=== PATIENT | female | born 1940 | race Caucasian/White ===

== ENCOUNTER 2016-10-11 12:11 | Observation (INO) | payer OTHER ==
--- NOTE | ~2016-10-11 | DS ---
Discharge Summary [facility] [address] [place]. [address] NAME: SIMONE MANUEL : 36 STATUS : DIS [facility]re PAT#: [id number] AGE: 76 ADM/REG DATE : 10/11/16 MR#: [id number] REPORT SERV DATE: 10/14/16 DICTATED BY: ARVIND RUFFIN DATE: 10/13/16 REPORT STATUS : Draft TRANSCRIBED BY: MODL DATE: 10/13/16 ADMISSION DATE: 10/11/2016 DISCHARGE DATE: 10/13/2016 DISCHARGE DIAGNOSES: 1. Vertigo, now resolved. No evidence of urinary tract infection. 2. Uncontrolled type 2 diabetes mellitus, improved. 3. Hypertension. 4. Dehydration, now resolved. 5. Hypotension, now resolved. 6. Right bundle branch block, chronic. 7. Depression. Medication continued per family. CONSULTANTS DURING THIS HOSPITALIZATION: None. INVASIVE PROCEDURES DONE DURING THIS HOSPITALIZATION: None. BRIEF HISTORY OF PRESENT ILLNESS: The patient is a 76-year-old white female who was triaged in the emergency room on 10/11/2016 at 1211 hours. The patient came in with complaints of dizziness, changing in blood pressure, and blood sugar, so she was admitted. For detailed history and physical exam, please see note dictated by Dr. Andrea Rivera on 10/11/2016. HOSPITAL COURSE: After being admitted to the hospital, this patient initially was thought to have a urinary tract infection, so she was started on IV Rocephin and IV fluids were given. She had a slight elevation in troponin and these were monitored, but it never went above over 0.1, the highest it got was 0.07. Her lab work remained stable. Her creatinine was normal. Her blood pressure improved with hydration as well. Urine culture came back negative, so Rocephin has been discontinued. She was encouraged to continue taking her regular medications. Otherwise, she remained stable and is being discharged in stable condition. DISCHARGE DISPOSITION: Home. DISCHARGE ACTIVITY: As tolerated. DISCHARGE DIET: Low sodium, 1800-calorie [employer] diet. DISCHARGE MEDICATIONS: Humalog pump fill, Synthroid 150 mcg once daily, Risperdal 0.5 mg once every morning, Lotensin and HCT 20 mg/12.5 mg once every morning, Singulair 10 mg once daily, herbal supplements as needed, vitamin D 2000 units once every morning, hydroxyzine 25 mg daily p.r.n., and fish oil. DISCHARGE FOLLOWUP: With Dr. Heath Leiva in one week. More than 30 minutes spent planning this patient's discharge, reconciling medications, writing prescriptions, discussing hospital care, and followup with the patient and the Discharge Summary [facility] [address] [place]. [address] NAME: SIMONE MANUEL : 38 STATUS : DIS Tigre PAT#: [id number] AGE: 76 ADM/REG DATE : 10/11/16 MR#: [id number] REPORT SERV DATE: 10/14/16 DICTATED BY: ARVIND RUFFIN DATE: 10/13/16 REPORT STATUS : Draft TRANSCRIBED BY: JOHN DATE: 10/13/16 daughter at the bedside. GIULIA/JOHN Arvind Ruffin M.D. / [id number] CC: Fazal Ron D.O.
--- NOTE | ~2016-10-11 | HP ---
History And Physical [facility] [address] [facility] [place]. [address] NAME: SIMONE MANUEL : 38 STATUS : ADM Tigre PAT#: [id number] AGE: 76 ADM/REG DATE : 10/11/16 MR#: [id number] REPORT SERV DATE: 10/11/16 DICTATED BY: RITA RIVERA DATE: 10/11/16 REPORT STATUS : Draft TRANSCRIBED BY: MODKeenan DATE: 10/11/16 DATE OF ADMISSION: 10/11/2016 CHIEF COMPLAINT: Dizziness episodes with changes in blood pressure and blood sugars. HISTORY OF PRESENT ILLNESS: The patient is a 76-year-old female with past medical history of hypertension; dementia; diabetes type 2, on insulin pump; thyroid disease; history of syncope secondary medications, who presents after having generalize-type weakness, unable to ambulate. Daughter reports that she is unable to get her perform ADLs like she had at her baseline. Symptoms have been constant, moderate without any pain or radiating symptoms. No nausea, vomiting, fever, or chills, but has had dizziness episodes and appears to have urinary tract-type symptoms. There are no worsening or relieving symptoms, but the patient is unable to ambulate, as she gets dizziness from there. The patient has been having intermittent administration of medications from daughter including blood pressure medications, which she has a handwritten log of holding and giving medications. Additionally, the patient has not been given her psych medications at night because caregiver is also battling sleep apnea and is about to get her CPAP next week. This has prevented her from giving her, her medications. Additionally, thyroid medication has also been influx, as the patient has been given daughter's thyroid medication, as she believed this was better than the one she has been normally prescribed. REVIEW OF SYSTEMS: For additional review of systems. GENERAL: Noted for no fevers or chills, but dizziness. EYES: No visual changes or pain reported. ENT: No sore throat or congestion. NEURO: Does have mild dizziness episodes, but no headache. SKIN: Did have a rash one week ago, but resolved. No bruising. RESPIRATORY: No shortness of breath or cough. CV: No chest pain or palpitations. GI: No nausea or diarrhea. : No dysuria. May have increased frequency, but no hematuria reported. MUSCULOSKELETAL: No myalgias or arthralgias at baseline. ENDO: No fatigue or polyuria. HEME: No bleeding or bruising. NEUROLOGIC: No rhinorrhea. PSYCH: No anxiety. Mild confusion, but improved from initial presentation. PAST MEDICAL HISTORY: UTIs; encephalopathy; dementia; diabetes, insulin dependent, insulin pump; hypertension; hypothyroidism; and obesity. SURGICAL HISTORY: Hysterectomy, back surgery, and left ankle. SOCIAL HISTORY: No tobacco, alcohol or illicits. Accompanied with daughter at bedside. FAMILY HISTORY: Stroke and hypertension. History And Physical [address] [place]. [address] NAME: SIMONE MANUEL : 38 STATUS : ADM [facility]re PAT#: [id number] AGE: 76 ADM/REG DATE : 10/11/16 MR#: [id number] REPORT SERV DATE: 10/11/16 DICTATED BY: RITA RIVERA DATE: 10/11/16 REPORT STATUS : Draft TRANSCRIBED BY: JOHN DATE: 10/11/16 ALLERGIES: B COMPLEX, MULTIVITAMIN, METFORMIN, ORANGE JUICE, AND SEROQUEL. HOME MEDICATIONS: Benazepril and hydrochlorothiazide, D3, Atarax, Humalog for insulin pump, Synthroid, Singulair, risperidone, and herbal supplement. PHYSICAL EXAMINATION: VITAL SIGNS: The patient's blood pressure 104/53, temperature 97.5, pulse 63, respirations 16, O2 saturations 100%, temperature 97.5. GENERAL: Elderly, chronically ill appearing, but in no acute distress. EYES: No scleral icterus. ENT: Dry mucous membranes. Tongue midline. HEAD: Normocephalic, atraumatic. RESPIRATORY: Clear to auscultation. No wheezes or rales. CV: Regular rate. No rubs. No JVD. GI: Soft, nontender, nondistended. : Deferred. MUSCULOSKELETAL: Moves extremities, but approximately 4 out of 6 x4. SKIN: Mild mottling and mild skin tenting. LYMPH: No cervical or supraclavicular lymphadenopathy. HEME: No bleeding or bruising. NEURO: Alert to person. Moves extremities, but does have clear dementia component. The daughter who is at bedside reports that she is at her baseline except for her strength, which she is not able to perform her regular functions. PSYCH: Appropriate mood and calm. LABORATORY DATA AND IMAGING: Chest, portable, lungs clear, cardiomegaly. Glucose 161. Urinalysis, small leuk esterase. CMP; sodium 142, potassium 4.3, BUN and creatinine 24 and 0.84, glucose 148. LFTs within normal limits. Troponin negative. CBC, WBC count 10.8, H and H within normal limits, platelets 240. INR 1.1. EKG, right bundle-branch block seen on prior EKGs in 2016, rate of 57, QTc 430. ASSESSMENT AND PLAN: 1. Urinary tract infection. 2. Syncope, dizziness. 3. Weakness. 4. Dehydration. 5. Hypertension. 6. Right bundle-branch block. 7. Diabetes, insulin dependent, on insulin pump. 8. Psych disease. PLAN: 1. For UTI, IV antibiotics and IV fluids. Prior cultures noted. Rocephin 2 g. Treat based off cultures. 2. Syncope, dizziness, likely secondary to UTI. Has had prior extensive workup that was attributed to acute encephalopathy secondary to UTI. Additionally, medication History And Physical [address] [address] NAME: SIMONE MANUEL : 38 STATUS : ADM [facility] PAT#: [id number] AGE: 76 ADM/REG DATE : 10/11/16 MR#: [id number] REPORT SERV DATE: 10/11/16 DICTATED BY: RITA RIVERA DATE: 10/11/16 REPORT STATUS : Draft TRANSCRIBED BY: JOHN DATE: 10/11/16 adjustments with thyroid medications, blood pressure medications, psych medications, which appear to have an inconsistent pattern of administration. Will need to be monitored. 3. Weakness. Treat underlying UTI and PT. 4. Dehydration. IV fluids. 5. Hypotension, hypertension variable. Appears normotensive at this time. IV fluids being administered and IV antibiotics. 6. Right bundle-branch block, chronic, seen in 2016. No acute chest pain reported. Troponins negative. 7. Diabetes type 2. Sliding scale insulin, insulin pump. Family requesting continuation of insulin pump, as the patient has had difficulty with control without insulin pump. We will monitor and adjust. 8. Psych disease, unclear medications, as the patient's family reports she has not been given any psych medications in approximately a month due to caregiver having sleep apnea, which is to be treated next week with CPAP, but reports that has not had any psych medications given in the last possibly month. 9. Additional hypertension. The patient sporadically given medications based off continued blood pressure. Appears to be given medications when blood pressure is over 140, but holding medications to less than 120, as the patient becomes symptomatic when treated for less than 120. We will need to monitor and titrate medications. DISPOSITION: Pending improvement in physical ability. May need further physical therapy or home health if required. DDN/MODL Rita Rviera MD / [id number] CC: MD Hetah Garza D.O.
[~2016-10-11 12:11] MED LIST: ASAB PO; AT25 PO; AUG500 PO; B121000P IM; HUMAPUMP SC; LEVEMFLXPN SC; LOTENSIN HCT1 TA2 PO; NOVOLOG SC; OTC FISH OIL PO; RISP1 PO; RISP2 PO; SEROQUEL25 PO; SYN125 PO; TYLENOL ARTH650 MG PO; VITAMIN B-12 OTC PO; VITAMIN D OTC PO; [UNRECOGNIZED DRUG - OTHER] TOP
[2016-10-11 13:21] LABS: BASOPHILS 0 %; EOSINOPHILS 0.6 %; EOSINOPHILS ABSOLUTE 0.06 10/3/uL (0.0-0.53); ER CBC TAT 0 Hrs 05 Mins; HEMATOCRIT 40.4 % (36.0-48.0); HEMOGLOBIN 13.6 g/dL (12.0-16.0); IMMATURE GRANULOCYTES 0.2 %; IMMATURE GRANULOCYTES ABSOLUTE 0.02 10/3/uL (0.0-0.11); LYMPHOCYTES ABSOLUTE 0.87 10/3/uL (0.67-4.30); MANUAL DIFF NO %; MEAN CORPUS HGB CONC 33.7 g/dL (32.0-36.0); MEAN CORPUSCULAR HEMOGLOB 29.8 pg (26.0-34.0); MEAN CORPUSCULAR VOLUME 88.6 fL (80-100); MONOCYTES 10.9 %; MONOCYTES ABSOLUTE 1.18 10/3/uL (0.21-1.20); NEUTROPHILS 80.3 %; NEUTROPHILS ABSOLUTE 8.71 10/3/uL (2.02-8.40); PLATELET COUNT 240 10/3/uL (150-400); RBC DISTRIBUTION WIDTH 13.2 % (12.0-16.0); RED CELL COUNT 4.56 10/6/uL (4.0-5.6); WHITE BLOOD CELLS 10.8 10/3/uL (4.5-10.5)
[2016-10-11 13:29] LABS: INTERNATIONAL NORMAL RATI 1.1 UNITS (-); PARTIAL THROMBO TIME 28.4 SEC (22.5-37.2); PROTIME (NOT ORD) 13.8 SEC (12.0-14.5)
[2016-10-11 13:41] LABS: ALKALINE PHOSPHATASE 110 U/L (45-117); CALCIUM, SERUM 8.7 MG/DL (8.5-10.4); CHLORIDE, SERUM 106 MMOL/L (96-112); CO2 (CARBON DIOXIDE) 29 MMOL/L (24-34); CREATININE 0.84 MG/DL (0.55-1.02); GFR AFRICAN AMERICAN 77 ML/MIN (>=60); GFR NON AFRICAN AMERICAN 67 ML/MIN (>=60); SGPT(ALT) 30 U/L (5-65); SODIUM, SERUM 142 MMOL/L (135-148); TOTAL BILIRUBIN 0.7 MG/DL (0-1.2); TOTAL PROTEIN 6.8 G/DL (6.0-8.5); TROPONIN I <0.02 NG/ML (<0.05)
[2016-10-11 13:45] LABS: A/G RATIO 0.8 (0.7-1.9); BUN (BLOOD UREA NITROGEN) 24 MG/DL (6-23); GLOBULIN 3.8 G/DL (2.5-4.1); GLUCOSE, SERUM 148 MG/DL (60-99)
[2016-10-11 13:47] LABS: POTASSIUM, SERUM 4.3 MMOL/L (3.5-5.3); SGOT(AST) 36 U/L (5-40)
[2016-10-11 14:11] LABS: ASCORBIC ACID (UR NOT ORDER) NEG (NEG); BILIRUBIN, URINE NEGATIVE (NEG); KETONE, URINE NEGATIVE (NEG); LEUKOCYTE ESTERASE(NOT OR SMALL (NEG); NITRITE (URINE) NEG (NEG); WBC (NOT ORDERED) (RFLEX) 18 (0-5)
[2016-10-11 14:12] LABS: ER URINALYSIS TAT 0 Hrs 38 Mins
[2016-10-11] MEDS ORDERED: LOTENSIN HCT1 TA2 PO (16:49)
[2016-10-11] MEDS ORDERED: SYN.15 PO (16:50)
[2016-10-11] MEDS ORDERED: RISP0.5 PO (16:50)
[2016-10-11] MEDS ORDERED: ARMOUR THYRO90 MG PO (16:51)
[2016-10-11] MEDS ORDERED: SINGULAIR1 PO (16:52)
[2016-10-11] MEDS ORDERED: HERBAL SUPPLEMENT PO (16:55)
[2016-10-11] MEDS ORDERED: VITAMIN D31000 UNIT PO (17:06)
[2016-10-11] MEDS ORDERED: AT25 PO (17:09)
[2016-10-11] MEDS ORDERED: HUMAPUMP SC (17:10)
[2016-10-11] MEDS ORDERED: FISH OIL PO (17:22)
[2016-10-12 05:02] LABS: BASOPHILS 0.1 %; BASOPHILS ABSOLUTE 0.01 10/3/uL (0.0-0.16); EOSINOPHILS 0.7 %; EOSINOPHILS ABSOLUTE 0.05 10/3/uL (0.0-0.53); HEMATOCRIT 33.7 % (36.0-48.0); HEMOGLOBIN 11.8 g/dL (12.0-16.0); IMMATURE GRANULOCYTES 0.1 %; IMMATURE GRANULOCYTES ABSOLUTE 0.01 10/3/uL (0.0-0.11); LYMPHOCYTES 22.5 %; LYMPHOCYTES ABSOLUTE 1.57 10/3/uL (0.67-4.30); MANUAL DIFF NO %; MEAN CORPUSCULAR HEMOGLOB 30.9 pg (26.0-34.0); MEAN CORPUSCULAR VOLUME 88.2 fL (80-100); MEAN PLATELET VOLUME 11.1 fL (9.2-13.0); MONOCYTES 13.8 %; MONOCYTES ABSOLUTE 0.96 10/3/uL (0.21-1.20); NEUTROPHILS 62.8 %; NEUTROPHILS ABSOLUTE 4.38 10/3/uL (2.02-8.40); PLATELET COUNT 217 10/3/uL (150-400); RBC DISTRIBUTION WIDTH 13.4 % (12.0-16.0); RED CELL COUNT 3.82 10/6/uL (4.0-5.6)
[2016-10-12 05:33] LABS: BUN (BLOOD UREA NITROGEN) 21 MG/DL (6-23); CALCIUM, SERUM 8.2 MG/DL (8.5-10.4); CHLORIDE, SERUM 108 MMOL/L (96-112); CO2 (CARBON DIOXIDE) 26 MMOL/L (24-34); CREATININE 0.71 MG/DL (0.55-1.02); GFR AFRICAN AMERICAN 95 ML/MIN (>=60); GFR NON AFRICAN AMERICAN 82 ML/MIN (>=60); SODIUM, SERUM 143 MMOL/L (135-148)
[2016-10-12 05:37] LABS: GLUCOSE, SERUM 210 MG/DL (60-99); POTASSIUM, SERUM 3.2 MMOL/L (3.5-5.3); TROPONIN I 0.07 NG/ML (<0.05)
[2016-10-12 06:29] LABS: ASCORBIC ACID (UR NOT ORDER) NEG (NEG); BILIRUBIN, URINE NEGATIVE (NEG); KETONE, URINE 20 MG/DL (NEG); LEUKOCYTE ESTERASE(NOT OR MOD (NEG); WBC (NOT ORDERED) (RFLEX) 27 (0-5)
[2016-10-12 06:44] LABS: PROCALCITONIN 0.07 ng/mL (<0.5)
[2016-10-12 11:41] LABS: POTASSIUM, SERUM 3.9 MMOL/L (3.5-5.3)
[2016-10-12 14:33] LABS: TROPONIN I 0.06 NG/ML (<0.05)
[2016-10-13 05:24] LABS: BASOPHILS 0 %; EOSINOPHILS 2.6 %; EOSINOPHILS ABSOLUTE 0.13 10/3/uL (0.0-0.53); HEMATOCRIT 33.8 % (36.0-48.0); HEMOGLOBIN 11.8 g/dL (12.0-16.0); IMMATURE GRANULOCYTES 0.2 %; IMMATURE GRANULOCYTES ABSOLUTE 0.01 10/3/uL (0.0-0.11); LYMPHOCYTES ABSOLUTE 1.49 10/3/uL (0.67-4.30); MEAN CORPUS HGB CONC 34.9 g/dL (32.0-36.0); MEAN CORPUSCULAR HEMOGLOB 30.6 pg (26.0-34.0); MEAN CORPUSCULAR VOLUME 87.8 fL (80-100); MEAN PLATELET VOLUME 10.5 fL (9.2-13.0); MONOCYTES 13.7 %; MONOCYTES ABSOLUTE 0.68 10/3/uL (0.21-1.20); NEUTROPHILS 53.5 %; NEUTROPHILS ABSOLUTE 2.65 10/3/uL (2.02-8.40); PLATELET COUNT 206 10/3/uL (150-400); RBC DISTRIBUTION WIDTH 13.2 % (12.0-16.0); RED CELL COUNT 3.85 10/6/uL (4.0-5.6)
[2016-10-13 05:26] LABS: MANUAL DIFF NO %
[2016-10-13 05:47] LABS: ALBUMIN 2.5 G/DL (3.5-5.0); CALCIUM, SERUM 8.5 MG/DL (8.5-10.4); CHLORIDE, SERUM 108 MMOL/L (96-112); CO2 (CARBON DIOXIDE) 25 MMOL/L (24-34); CREATININE 0.58 MG/DL (0.55-1.02); GFR AFRICAN AMERICAN 102 ML/MIN (>=60); GFR NON AFRICAN AMERICAN 88 ML/MIN (>=60); GLUCOSE, SERUM 240 MG/DL (60-99); PHOSPHORUS, SERUM 2.9 MG/DL (2.5-4.5); POTASSIUM, SERUM 4.1 MMOL/L (3.5-5.3); SODIUM, SERUM 141 MMOL/L (135-148)
[2016-10-13 05:48] LABS: BUN (BLOOD UREA NITROGEN) 14 MG/DL (6-23)
[2016-10-13] MEDS ORDERED: SYN125 PO (13:41)
[2017-05-03] MEDS ORDERED: ZIAC5 PO (22:36)
[2017-05-03] MEDS ORDERED: PLAVIX PO (22:37)
[2017-05-03] MEDS ORDERED: LIPITOR80 MG PO (22:38)
[2017-05-03] MEDS ORDERED: HUMAPUMP SC (22:39)
[2017-05-05] MEDS ORDERED: B VITAMIN PO (17:53)
[2017-05-05] MEDS ORDERED: VITAMIN D PO (17:54)
[2017-05-05] MEDS ORDERED: [UNRECOGNIZED DRUG - OTHER] PO (17:54)
[2017-05-05] MEDS ORDERED: ALPHA LIPOIC PO (17:54)
[2017-05-05] MEDS ORDERED: HALF81 PO (17:55)
[2017-05-05] MEDS ORDERED: BACOPA PO (17:55)
[2017-05-05] MEDS ORDERED: LIPITOR80 MG PO (17:56)
[2017-05-05] MEDS ORDERED: SYN125 PO (17:57)
[2017-05-05] MEDS ORDERED: RISP0.5 PO (17:57)
[2017-05-05] MEDS ORDERED: HUMAPUMP SC (17:57)
[2017-05-05] MEDS ORDERED: ZIAC5 PO (17:57)
[2017-05-05] MEDS ORDERED: PLAVIX PO (17:58)
== END 2016-10-13 16:36 | disposition home or self-care (01) ==
LOC: ER 12:11 → CDU1 17:36 → CDU2 18:36
PROVIDERS: Emergency Medicine; Internal Medicine; Student in an Organized Health Care Education/Training Program
DX: R42 Dizziness and giddiness (principal); I10 Essential (primary) hypertension; E86.0 Dehydration; I95.9 Hypotension, unspecified; I45.10 Unspecified right bundle-branch block; F32.9 Major depressive disorder, single episode, unspecified; E11.8 Type 2 diabetes mellitus with unspecified complications; E66.9 Obesity, unspecified; E78.00 Pure hypercholesterolemia, unspecified; E03.9 Hypothyroidism, unspecified; Z79.52 Long term (current) use of systemic steroids; Z79.899 Other long term (current) drug therapy; Z90.710 Acquired absence of both cervix and uterus; Z98.890 Other specified postprocedural states; Z82.3 Family history of stroke; Z82.49 Family history of ischemic heart disease and other diseases of the circulatory system; Z88.8 Allergy status to other drugs, medicaments and biological substances
CPT/HCPCS: 71010; 80048; 80053; 80069; 81001; 82962; 83735; 84132; 84145; 84443; 84484; 85025; 85610; 85730; 87040; 87086; 93005; 96372; 96374; 96376; 97161-GP; 99285; A9270-GY; G0378; G8978-CJ-GP; G8979-CH-GP

== ENCOUNTER 2016-12-13 22:28 | Inpatient (IN) | payer OTHER ==
--- NOTE | ~2016-12-13 | CN ---
Consultation Report [facility] [address] [place]. [address] NAME: SIMONE MANUEL : 38 STATUS : ADM Tigre PAT#: [id number] AGE: 76 ADM/REG DATE : 12/13/16 MR#: [id number] REPORT SERV DATE: 12/16/16 DICTATED BY: DALIA SALTER DATE: 12/16/16 REPORT STATUS : Draft TRANSCRIBED BY: JOHN DATE: 12/16/16 CARDIOLOGY CONSULT DATE OF CONSULTATION: REFERRING PHYSICIAN: Rabia Loredo, nurse practitioner, neurology Service. REFERRING REASON: Acute CVA, possible embolic, and need for a loop recorder. HISTORY OF PRESENT ILLNESS: This is a pleasant 76-year-old white, obese female, with long history of hypertension and some vertigo type sensation, but no previous other cardiac issues. She is been followed by Dr. Soares at [facility]. She has some mild underlying dementia and possible prior history of CVA. She presented with an unsteady gait and syncopal episodes. There were some borderline orthostatic changes, but remained in normal sinus rhythm. Echocardiogram was found to be normal. She has been admitted to Hospitalist Service. The initial CT of the brain was negative for acute changes. 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 Dr. Nascimento neurologist requesting a loop recorder. She remained in normal sinus rhythm. According to her daughter, the patient has been walking with a walker on and off for while, while having unsteady gait. She denied any recent palpitations, chest pain, or significant shortness of breath. Her cardiac enzymes are negative. She was just started on aspirin, Plavix, and statin. An echocardiogram was normal with an EF of 65%. The rest of review of systems is negative. PAST MEDICAL HISTORY: 1. Dementia. 2. Obesity. 3. Hypertension. 4. Hyperlipidemia. 5. History of vertigo type sensation in the past and history of negative nuclear cardiac stress test for ischemia in 2013. ALLERGIES: METFORMIN AND SEROQUEL. SOCIAL HISTORY: The patient lives with her daughter. She is a . She does not drink alcohol, use street drugs, or smoking. She walks with a walker. FAMILY HISTORY: Negative for sudden cardiac or premature coronary artery disease in the family. CURRENT MEDICATION: Benazepril 20 mg once a day, Aricept 5 mg once a day, Lovenox subcutaneously, Synthroid 150 mcg once a day, Antivert 25 mg every six hours, Risperdal 0.5 mg once a day, Tylenol p.r.n., she is getting also Rocephin for UTI times, and she was just started on statin therapy. Consultation Report [facility] [address] [place]. [address] NAME: SIMONE MANUEL : 38 STATUS : ADM [facility] PAT#: [id number] AGE: 76 ADM/REG DATE : 12/13/16 MR#: [id number] REPORT SERV DATE: 12/16/16 DICTATED BY: DALIA SALTER DATE: 12/16/16 REPORT STATUS : Draft TRANSCRIBED BY: JOHN DATE: 12/16/16 PHYSICAL EXAMINATION: GENERAL: In no acute distress. VITAL SIGNS: Blood pressure 196/81, heart rate 61 and regular. HEENT: Pupils reactive to light and accommodation. Moist mucosa membrane. NECK: No JVD. Normal carotid upstroke. No carotid bruits. LUNGS: Decreased breath sounds, but no crackles. COR: Normal S1, S2. No S3 or S4. No significant rub or murmurs. ABDOMEN: Obese, distended, and nontender. EXTREMITIES: Lower extremities, decreased pedal pulses bilaterally, but no edema. SKIN: Warm with normal turgor. MS: No kyphosis. NEUROLOGIC: Elderly obese female, who is oriented to person and place. LABORATORY AND DIAGNOSTIC DATA: CBC within normal limits. Sodium 133. CT of the brain as above. Cardiac enzymes; troponin x2 negative. Carotid ultrasound, no significant disease only grade 1 disease noted. The patient's TSH is suppressed at 0.05. MRI revealed left PICA brain stroke with some high-grade stenosis of the MCA. On electrocardiogram she remains in normal sinus rhythm. Echocardiogram normal with an EF of 60% interpreted by Dr. Dixon on 12/14/2016. Electrocardiogram revealed sinus rhythm, 61 beats per minute, chronic right bundle-branch block. ASSESSMENT AND PLAN: Acute cerebrovascular accident, possibly embolic under these group patients. Cardiovascular exam is normal. She remains in normal sinus rhythm with chronic right bundle branch block, and her echocardiogram was normal. There was no clear evidence of documented arrhythmia. Per Neurology's request we will place the loop recorder. She will follow up with Dr. Soares. PATRIZIA/JOHN Dalia Salter M.D. / [id number] CC: Fazal Evangelista D.O.
--- NOTE | ~2016-12-13 | HP ---
History And Physical [facility] [address] [place]. [address] NAME: SIMONE MANUEL : 38 STATUS : ADM [facility]re PAT#: [id number] AGE: 76 ADM/REG DATE : 12/13/16 MR#: [id number] REPORT SERV DATE: 12/14/16 DICTATED BY: ELISHA COPE DATE: 12/14/16 REPORT STATUS : Draft TRANSCRIBED BY: MODL DATE: 12/14/16 DATE OF ADMISSION: 12/13/2016 POINT OF ENTRY: [facility] Emergency Department. CHIEF COMPLAINT: Syncope. HISTORY OF PRESENT ILLNESS: Ms Manuel is a 76-year-old female with history of dementia, insulin-dependent diabetes mellitus type 2, hypertension, hypothyroidism, as well as a prior history of vertigo and syncope, who presents to the emergency department today with a recurrent syncopal episode. The patient was reportedly ambulating from the bathroom back to her bedroom under the assistance and supervision of a son-in-law when she started to get weak, dizzy, and suffered a witnessed syncopal episode. The patient was reportedly gently brought down to the ground by the son-in-law, and suffered no head trauma. The patient reportedly also had an episode of nausea and vomiting shortly after her syncopal episode. She was also very cold, clammy, and diaphoretic. Family checked her blood sugar, was in the 120s. Initial evaluation in the emergency department notable for stable vital signs. Heart rate of 58. EKG, CT scan of the brain, labs otherwise unremarkable. The patient was gotten out of bed to ambulate and was very weak and unsteady on her feet with concerns of possibly for some vertigo type component. Family reports that earlier in the day she was a little unsteady on her feet which is unusual for her, requiring a walker also which is out of her norm. She was seen by a PA in her primary care physician's office today for these concerns and diagnosed urinary tract infection, placed on cefpodoxime. REVIEW OF SYSTEMS: Comprehensive review of system otherwise negative unless listed in history of present illness. PREVIOUS MEDICAL HISTORY: 1. Dementia. 2. Hypertension. 3. Insulin-dependent diabetes mellitus, type 2. 4. Vertigo. 5. Syncope. 6. Hypothyroidism. 7. Depression. PAST SURGICAL HISTORY: 1. Abdominal hysterectomy. 2. Back surgery. 3. Forearm open reduction and internal fixation. History And Physical [address] [place]. [address] NAME: SIMONE MANUEL : 38 STATUS : ADM Tigre PAT#: [id number] AGE: 76 ADM/REG DATE : 12/13/16 MR#: [id number] REPORT SERV DATE: 12/14/16 DICTATED BY: ELISHA COPE DATE: 12/14/16 REPORT STATUS : Draft TRANSCRIBED BY: JOHN DATE: 12/14/16 ALLERGIES: TO B-COMPLEX VITAMIN, MULTIVITAMIN, PROCESSED PEANUT BUTTER, METFORMIN, ORANGE JUICE, AND SEROQUEL. HOME MEDICATIONS: Pending at the time of dictation. SOCIAL HISTORY: Denies any tobacco, alcohol, or illicits. Lives with daughter, who is her primary caregiver. FAMILY MEDICAL HISTORY: Mother with history of stroke. Father of old age. Siblings history is unknown. LABS AND IMAGIN. White count 7.9, hemoglobin is 13.3, hematocrit is 37.7, platelet count is 203, and INR 1.1. 2. Sodium is 133, potassium 3.6, chloride 98, carbon dioxide 31, BUN 15, creatinine 0.64, glucose is 130, calcium is 8.8, and magnesium is 2.1. 3. Urinalysis: Specific gravity is 1.010, no evidence of any infection. 4. Troponin is less than 0.02. 5. EKG per my review shows a right bundle branch block with heart rates of 61, with no evidence of any acute ischemia or infarction. 6. CT scan of the brain shows no acute intracranial abnormality, shows moderate diffuse cerebral involutional changes and deep white matter changes. PHYSICAL EXAMINATION: VITAL SIGNS: Temperature is 98.4 degrees Fahrenheit, pulse is 58, respirations 16, saturating 99% on room air, and blood pressure 142/43. On recheck, blood pressure now 187/59, pulse is still in the upper 50s. GENERAL: The patient is awake and alert, in no acute distress. Resting comfortably in bed. She is an elderly female. Family is at bedside. HEENT: Atraumatic and normocephalic. Moist mucous membranes. Pupils equal, round, reactive to light and accommodation. Extraocular eye movements intact. No scleral icterus. NECK: No jugular venous distention. No carotid bruits. CARDIAC: Bradycardic rate, regular rhythm. No murmurs or gallops. Normal S1, S2. LUNGS: Clear to auscultation bilaterally. No wheezes, rhonchi, or crackles. ABDOMEN: Soft, nontender, and nondistended. Good bowel sounds. No rebound, guarding, or rigidity. EXTREMITIES: Warm and perfused. No cyanosis, clubbing, or edema. SKIN: Warm and dry. PSYCH: Affect is appropriate. NEURO: Alert and oriented to person only. Speech is normal. Gait not assessed. ASSESSMENT AND PLAN: Ms Manuel is a 76-year-old female, who suffered a syncopal episode at home. PROBLEM LIST: 1. Syncope. History And Physical [address] [address] NAME: SIMONE MANUEL : 38 STATUS : ADM Tigre PAT#: [id number] AGE: 76 ADM/REG DATE : 12/13/16 MR#: [id number] REPORT SERV DATE: 12/14/16 DICTATED BY: ELISHA COPE DATE: 12/14/16 REPORT STATUS : Draft TRANSCRIBED BY: JOHN DATE: 12/14/16 2. Dizziness and concern for vertigo. 3. Urinary tract infection. 4. Hypertension. 5. Dementia. 6. Insulin-dependent diabetes mellitus, type 2. 7. Hyponatremia. PLAN: 1. Syncope. We will evaluate for etiology of syncope with orthostatic vital signs, carotid arterial Doppler as well as echocardiogram. The patient does have a very low resting heart rate given her age, also I am suspecting may be sick sinus syndrome, and/or chronotropic incompetence as etiology of the patient's syncopal episodes. Provide some gentle IV fluid hydration. 2. Dizziness and vertigo. We will place the patient on some scheduled meclizine, physical therapy evaluation, provide IV fluid hydration. 3. Urinary tract infection. Urinalysis here is without evidence of infection, but reportedly was diagnosed with UTI earlier in the day at her PCP's office. We will continue with some IV Rocephin. 4. Hypertension. Continue the patient's home medications. 5. Insulin-dependent diabetes mellitus, type 2. The patient currently wears an insulin pump for her diabetes. We will ask the Diabetes Nurse Educator to see the patient in the morning for assistance with managing insulin pump. 6. DVT prophylaxis. Lovenox subcu. CODE STATUS: The patient wished to be full code. EDEN/JOHN Elisha Cope MD / [id number] CC: MD Heath Hightower D.O.
--- NOTE | ~2016-12-13 | DS ---
Discharge Summary [facility] [address] [place]. [address] NAME: VERENICE MANUEL : 38 STATUS : DIS IN PAT#: [id number] AGE: 76 ADM/REG DATE : 12/13/16 MR#: [id number] REPORT SERV DATE: 12/20/16 DICTATED BY: TAWANNA JUNE DATE: 12/19/16 REPORT STATUS : Draft TRANSCRIBED BY: MODL DATE: 12/19/16 ADMISSION DATE: 12/13/2016 DISCHARGE DATE: 12/19/2016 CONDITION ON DISCHARGE: Stable. DISPOSITION: Discharge to Inpatient Rehab Facility, most likely, [facility] if beds are available today on 12/19/2016. CONSULTS OBTAINED DURING HOSPITALIZATION: Include Neurology consult for acute CVA and Cardiology consult for loop recorder placement. DIAGNOSES ON DISCHARGE: 1. 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 Hence, the patient is going to be going to the rehab facility with the loop recorder that has already been put in during this admission. 2. Chronic dementia, which is moderately advanced. 3. Diabetes mellitus, which is stable at this time. 4. Hypertension, which is stable at this time. 5. Recurrent urinary tract infections-the patient has finished her course of antibiotics for urinary tract infections for now and will not need any more antibiotics. 6. Hypothyroidism, which is stable. 7. Depression, which is stable. BRIEF HOSPITAL COURSE: Ms. Verenice Manule is a 76-year-old female patient, who was brought in with signs and symptoms as outlined in history and physical exam on 12/14/2016. Essentially, the patient was admitted with syncope. While workup for syncope was being done and Neurology was consulted, it was found that the patient did have an acute CVA that may have caused her to have the dizziness and the syncope. The patient did have CVA in the left frontal areas of the brain and the left posterior lobe of the brain. Next, Neurology felt that this may be embolic in origin. Even though the patient has remained in sinus rhythm throughout hospitalization, Cardiology was consulted for loop recorder placement. This has been accomplished. Her echocardiogram however has come back normal with no PFO and her ejection fraction is about 50% to 55%, which is normal. The patient does have some diastolic dysfunction of the heart though, which is stable at this time. During hospitalization, the patient's syncope resolved, but she continued to remain somewhat encephalopathic. According to family, some of this is baseline. The patient does have moderately advanced dementia and has fluctuating mental status many times. However on the day of discharge, the patient is quite alert. She is able to answer and follow commands as requested. Even though she is not best oriented to time, she is oriented to person, and somewhat oriented her place too. Hence, she is being discharged to inpatient rehab for further recovery from the CVA. Her medications that she will be going to the rehab on include the following, Antivert 25 mg Discharge Summary [facility] [address] [place]. [address] NAME: VERENICE MANUEL : 38 STATUS : DIS IN PAT#: [id number] AGE: 76 ADM/REG DATE : 12/13/16 MR#: [id number] REPORT SERV DATE: 12/20/16 DICTATED BY: TAWANNA JUNE DATE: 12/19/16 REPORT STATUS : Draft TRANSCRIBED BY: JOHN DATE: 12/19/16 p.o. q.6 hours p.r.n. for dizziness, Aricept 5 mg p.o. at bedtime, aspirin 81 mg once a day, Humalog insulin as before, Lipitor 80 mg once a day, MiraLAX powder two packets once a day, Plavix 75 mg once a day, Risperdal 0.5 mg p.o. daily, Synthroid 150 mcg once a day. The patient's most recent labs and radiological studies that were done during hospitalization is as follows. The most recent CBC which was done on 12/18/2016 shows a WBC count of 7.5, hemoglobin 12.4, hematocrit 35.7, and platelet count of 221. Her electrolyte profile on the same day shows completely normal electrolytes, BUN, and creatinine. The patient did have an MRA of the head and neck and this shows that the patient does have atherosclerotic changes in the left PICA branch and also high-grade focal under 1 cm stenosis of the MCA. Next, the patient also had an MRA of the neck that shows high-grade stenosis of the left section of the vertebral artery; however, the carotid subclavian and right vertebral artery demonstrated no significant stenosis. Next as mentioned previously, the patient's MRI of the brain does show that the patient has had a left frontal lobe infarct and a left posterior lobe infarct which are both acute at this time. The patient actually has had a left medullary brain stem infarction and a smaller left hemisphere cerebellar infarction. The patient has also had an acute left frontal and periventricular infarction, but no bleeding. The patient had an A1c during this admission and it came back at 7.9, did have an ultrasensitive TSH done, even though that came back a little low. Free T4 was normal. Urine culture came back with no growth in one day. Hence, the Rocephin has been discontinued before she is being transferred. The patient did have a chest x-ray, most recent one on 12/18/2016 that shows mild bibasilar atelectasis. No acute cardiopulmonary abnormality and mild enlargement of the cardiac silhouette. The patient now is being discharged in stable condition and I have spent about 40 minutes in coordinating discharge care of this patient including [id number] encounter and summarizing this discharge. APRIL/JOHN Tawanna June M.D. / [id number] CC: Tawanna June M.D. Discharge Summary [address] [address] NAME: VERENICE MANUEL : 38 STATUS : DIS IN PAT#: [id number] AGE: 76 ADM/REG DATE : 12/13/16 MR#: [id number] REPORT SERV DATE: 12/20/16 DICTATED BY: TAWANNA JUNE DATE: 12/19/16 REPORT STATUS : Draft TRANSCRIBED BY: MODL DATE: 12/19/16 Heath Leiva D.O.
--- NOTE | ~2016-12-13 | CN ---
Consultation Report [facility] [address] [place]. [address] NAME: SIMONE MANUEL : 36 STATUS : ADM Tigre PAT#: [id number] AGE: 76 ADM/REG DATE : 12/13/16 MR#: [id number] REPORT SERV DATE: 12/16/16 DICTATED BY: PATTIE LONDON DATE: 12/16/16 REPORT STATUS : Draft TRANSCRIBED BY: MODL DATE: 12/16/16 NEUROLOGY CONSULTATION DATE OF CONSULTATION: 12/16/2016 REASON FOR CONSULTATION: Acute embolic stroke; reported syncopal episodes. PCP: Dr. Heath Leiva. HOSPITALIST: Dr. Claudio Thompson. HISTORY OF PRESENT ILLNESS: The patient is a 76-year-old female, who had a witnessed syncopal episode on 12/13/2016. She was in the bathroom with her son-in-law when she started to pass out. She was gently brought down to the ground and suffered no head trauma. She also had an episode of nausea and vomiting after her syncopal episode. She was cold, clammy, and diaphoretic. Her blood sugar was checked and it was 120. She was brought to the emergency department at [facility] for further evaluation and treatment. When she arrived, her heart rate was 58 (sinus bradycardia). She did get out of the bed to ambulate but was very weak and unsteady on her feet. The family reports that this is her 5th syncopal type episode over the last two years. It was unclear as to whether the patient actually is unresponsive or she just collapses because of weakness. Earlier in the day on the , the patient was unsteady on her feet and she was taken to her PCP who diagnosed her with UTI and placed her on antibiotics. PAST MEDICAL HISTORY: Dementia, diabetes mellitus type 2, hypertension, hypothyroidism, vertigo, "syncopal episodes", depression, and right bundle-branch block. PAST SURGICAL HISTORY: Total abdominal hysterectomy, back surgery, and ORIF of the forearm. HOME MEDICATION LIST: Includes 1. Lotensin HCT 20/12.5 mg daily. 2. Ceftin 250 mg b.i.d. 3. Aricept 5 mg at bedtime. 4. Humalog insulin via insulin pump. 5. Synthroid 150 mcg daily. 6. Singulair 10 mg at bedtime. 7. Risperdal 0.5 mg daily. ALLERGIES: METFORMIN, SEROQUEL. INTOLERANCES: Morton juice, peanut butter, B complex vitamins, and a multivitamin. Consultation Report [facility] [place] [address] [place]. [address] NAME: SIMONE MANUEL : 38 STATUS : ADM Tigre PAT#: [id number] AGE: 76 ADM/REG DATE : 12/13/16 MR#: [id number] REPORT SERV DATE: 12/16/16 DICTATED BY: PATTIE LONDON DATE: 12/16/16 REPORT STATUS : Draft TRANSCRIBED BY: JOHN DATE: 12/16/16 SOCIAL HISTORY: The patient lives with her youngest daughter. She has five children. She is a retired [employer]OU[employer]. She does not smoke, drink, alcohol, or use illicits. FAMILY HISTORY: The patient's mother of a stroke. Her father from old age. There is no history on her siblings. She has two children with schizophrenia. REVIEW OF SYSTEMS: Please see HPI for pertinent positives. PHYSICAL EXAMINATION: GENERAL: The patient is a 76-year-old female, who stands 5 feet 7 inches tall and weighs 208 pounds. VITAL SIGNS: She is afebrile. Heart rate 64, respiratory rate 18, O2 saturations on room air 95%, and blood pressure 152/80. NEUROLOGIC: The patient is awake. She is alert. She is oriented to person and place, not time but she is oriented to situation. Pupils are 4 mm, PERRLA. Cranial nerves II through XII are intact except she has a slight right facial droop. Vision via confrontation is full in both zhang. She can move all extremities x4. No pronator drift; but jgpcto-nz-zeoo and qlin-vb-sqdr, there is ataxia with bhnsys-tm-pstj and qazy-dv-xkez on the right side. Strength in the upper extremities is 4/5 on the right and 5/5 on the left. No reported sensory deficits. DTRs are 2+ bilaterally in the upper extremities. Lower extremities strength is 4/5 on the right and 5/5 on the left. Lower DTRs are 2+ bilaterally. Downgoing toes. No reported sensory deficits. I did not get the patient up to ambulate. She is a total assist. NECK: No carotid bruits, JVD, or thyromegaly. CHEST: Lung sounds clear. CARDIAC: Regular rate and rhythm. LABORATORY DATA: CBC is normal. BMP normal except glucose is 234. A1c 7.9. UA is negative for UTI. TSH is low at 0.054 and T3 is low at 1.23. MRI of the brain, acute embolic stroke in the left brainstem/medullary region and left cerebellar region; also stroke in the left MCA territory region. 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 High- grade stenosis of the left vertebral artery. No stenosis of the carotids. NIH stroke scale is a 5. Echocardiogram shows LVEF of 60% to 65%. ASSESSMENT/PLAN: 1. Acute embolic stroke on the left [employer] and left MCA territory. The patient will be placed on aspirin 81 mg daily and Plavix after she is evaluated for loop recorder implantation. She will be placed on Lipitor 80 mg daily. PT/OT and case management consultation. Further lab work will be checked, and the patient will be evaluated for loop recorder implantation. Thank you again for including us in consultation. We will follow with you. Consultation Report [address] [address] NAME: SIMONE MANUEL : 38 STATUS : ADM Tirge PAT#: [id number] AGE: 76 ADM/REG DATE : 12/13/16 MR#: [id number] REPORT SERV DATE: 12/16/16 DICTATED BY: PATTIE LONDON DATE: 12/16/16 REPORT STATUS : Draft TRANSCRIBED BY: JOHN DATE: 12/16/16 FOX/JOHN ANDREAS Ball / [id number] CC: Fazal Evangelista D.O. Iwayemi O. Olayeye, MD
[~2016-12-13 22:28] MED LIST changes: +ARMOUR THYRO90 MG PO; +FISH OIL PO; +HERBAL SUPPLEMENT PO; +RISP0.5 PO; +SINGULAIR1 PO; +SYN.15 PO; +VITAMIN D31000 UNIT PO
[2016-12-13 22:41] LABS: ASCORBIC ACID (UR NOT ORDER) NEG (NEG); BILIRUBIN, URINE NEGATIVE (NEG); ER URINALYSIS TAT 0 Hrs 11 Mins; KETONE, URINE NEGATIVE (NEG); LEUKOCYTE ESTERASE(NOT OR NEG (NEG); NITRITE (URINE) NEG (NEG); WBC (NOT ORDERED) (RFLEX) 2 (0-5)
[2016-12-13 22:53] LABS: BASOPHILS 0 %; EOSINOPHILS 0.4 %; EOSINOPHILS ABSOLUTE 0.03 10/3/uL (0.0-0.53); HEMOGLOBIN 13.3 g/dL (12.0-16.0); IMMATURE GRANULOCYTES 0.3 %; IMMATURE GRANULOCYTES ABSOLUTE 0.02 10/3/uL (0.0-0.11); LYMPHOCYTES 10.4 %; LYMPHOCYTES ABSOLUTE 0.82 10/3/uL (0.67-4.30); MEAN CORPUS HGB CONC 35.3 g/dL (32.0-36.0); MEAN CORPUSCULAR HEMOGLOB 30.5 pg (26.0-34.0); MEAN CORPUSCULAR VOLUME 86.5 fL (80-100); MEAN PLATELET VOLUME 10.6 fL (9.2-13.0); MONOCYTES 8.2 %; MONOCYTES ABSOLUTE 0.65 10/3/uL (0.21-1.20); NEUTROPHILS 80.7 %; NEUTROPHILS ABSOLUTE 6.39 10/3/uL (2.02-8.40); PLATELET COUNT 203 10/3/uL (150-400); RBC DISTRIBUTION WIDTH 12.8 % (12.0-16.0); RED CELL COUNT 4.36 10/6/uL (4.0-5.6)
[2016-12-13 22:54] LABS: ER CBC TAT 0 Hrs 05 Mins; HEMATOCRIT 37.7 % (36.0-48.0); MANUAL DIFF NO %; WHITE BLOOD CELLS 7.9 10/3/uL (4.5-10.5)
[2016-12-13 23:02] LABS: INTERNATIONAL NORMAL RATI 1.1 UNITS (-); PROTIME (NOT ORD) 13.7 SEC (12.0-14.5)
[2016-12-13 23:03] LABS: PARTIAL THROMBO TIME 33.7 SEC (22.5-37.2)
[2016-12-13 23:09] LABS: BUN (BLOOD UREA NITROGEN) 15 MG/DL (6-23); CALCIUM, SERUM 8.8 MG/DL (8.5-10.4); CHEST PAIN PROFILE TAT 0 Hrs 20 Mins; CHLORIDE, SERUM 98 MMOL/L (96-112); CO2 (CARBON DIOXIDE) 31 MMOL/L (24-34); CREATININE 0.64 MG/DL (0.55-1.02); GFR AFRICAN AMERICAN 99 ML/MIN (>=60); GFR NON AFRICAN AMERICAN 85 ML/MIN (>=60); POTASSIUM, SERUM 3.6 MMOL/L (3.5-5.3); TROPONIN I <0.02 NG/ML (<0.05)
[2016-12-13 23:10] LABS: GLUCOSE, SERUM 130 MG/DL (60-99); SODIUM, SERUM 133 MMOL/L (135-148)
[2016-12-14] MEDS ORDERED: ARICEPT5 PO (03:28)
[2016-12-14] MEDS ORDERED: CEFT2 PO (03:28)
[2016-12-14 06:25] LABS: BASOPHILS 0 %; EOSINOPHILS 0 %; HEMATOCRIT 37.2 % (36.0-48.0); HEMOGLOBIN 13.1 g/dL (12.0-16.0); IMMATURE GRANULOCYTES 0.2 %; IMMATURE GRANULOCYTES ABSOLUTE 0.02 10/3/uL (0.0-0.11); MEAN CORPUS HGB CONC 35.2 g/dL (32.0-36.0); MEAN CORPUSCULAR HEMOGLOB 30.3 pg (26.0-34.0); MEAN CORPUSCULAR VOLUME 85.9 fL (80-100); MEAN PLATELET VOLUME 10.8 fL (9.2-13.0); MONOCYTES 7.9 %; MONOCYTES ABSOLUTE 0.79 10/3/uL (0.21-1.20); NEUTROPHILS 81.9 %; NEUTROPHILS ABSOLUTE 8.15 10/3/uL (2.02-8.40); PLATELET COUNT 207 10/3/uL (150-400); RBC DISTRIBUTION WIDTH 12.6 % (12.0-16.0); RED CELL COUNT 4.33 10/6/uL (4.0-5.6)
[2016-12-14 06:27] LABS: MANUAL DIFF NO %
[2016-12-14 06:40] LABS: A/G RATIO 0.9 (0.7-1.9); ALBUMIN 2.8 G/DL (3.5-5.0); ALKALINE PHOSPHATASE 109 U/L (45-117); BUN (BLOOD UREA NITROGEN) 14 MG/DL (6-23); CALCIUM, SERUM 8.5 MG/DL (8.5-10.4); CHLORIDE, SERUM 97 MMOL/L (96-112); CO2 (CARBON DIOXIDE) 30 MMOL/L (24-34); CREATININE 0.71 MG/DL (0.55-1.02); GFR AFRICAN AMERICAN 95 ML/MIN (>=60); GFR NON AFRICAN AMERICAN 82 ML/MIN (>=60); GLOBULIN 3.2 G/DL (2.5-4.1); POTASSIUM, SERUM 3.9 MMOL/L (3.5-5.3); SGOT(AST) 13 U/L (5-40); SGPT(ALT) 18 U/L (5-65); SODIUM, SERUM 133 MMOL/L (135-148); TOTAL BILIRUBIN 0.5 MG/DL (0-1.2); TROPONIN I <0.02 NG/ML (<0.05)
[2016-12-14 06:41] LABS: GLUCOSE, SERUM 234 MG/DL (60-99)
[2016-12-15 05:34] LABS: FREE T4 1.4 NG/DL (0.76-1.46); ULTRASENSITIVE TSH 0.054 MCIU/ML (0.358-3.740)
[2016-12-16 13:26] LABS: ALBUMIN 2.6 G/DL (3.5-5.0); CHOL/HDL RATIO(NOT ORDER) 3.3 (0-5); DIRECT BILIRUBIN 0.1 MG/DL (0.0-0.4); FOLATE 25.8 NG/ML (>5.2); INDIRECT BILIRUBIN(NOT ORDER) 0.3 MG/DL (0.1-0.9); TOTAL BILIRUBIN 0.4 MG/DL (0-1.2); TOTAL PROTEIN 5.6 G/DL (6.0-8.5)
[2016-12-17 05:15] LABS: INTERNATIONAL NORMAL RATI 1.1 UNITS (-); PROTIME (NOT ORD) 14.2 SEC (12.0-14.5)
[2016-12-17 05:21] LABS: BASOPHILS 0 %; EOSINOPHILS 1.2 %; EOSINOPHILS ABSOLUTE 0.09 10/3/uL (0.0-0.53); HEMATOCRIT 35.9 % (36.0-48.0); HEMOGLOBIN 12.3 g/dL (12.0-16.0); IMMATURE GRANULOCYTES 0.1 %; IMMATURE GRANULOCYTES ABSOLUTE 0.01 10/3/uL (0.0-0.11); LYMPHOCYTES 16.2 %; LYMPHOCYTES ABSOLUTE 1.24 10/3/uL (0.67-4.30); MEAN CORPUS HGB CONC 34.3 g/dL (32.0-36.0); MEAN CORPUSCULAR HEMOGLOB 29.4 pg (26.0-34.0); MEAN CORPUSCULAR VOLUME 85.9 fL (80-100); MEAN PLATELET VOLUME 11.4 fL (9.2-13.0); MONOCYTES 14.6 %; MONOCYTES ABSOLUTE 1.12 10/3/uL (0.21-1.20); NEUTROPHILS 67.9 %; NEUTROPHILS ABSOLUTE 5.21 10/3/uL (2.02-8.40); PLATELET COUNT 216 10/3/uL (150-400); RBC DISTRIBUTION WIDTH 13.1 % (12.0-16.0); RED CELL COUNT 4.18 10/6/uL (4.0-5.6); WHITE BLOOD CELLS 7.7 10/3/uL (4.5-10.5)
[2016-12-17 05:23] LABS: BUN (BLOOD UREA NITROGEN) 13 MG/DL (6-23); CALCIUM, SERUM 8.4 MG/DL (8.5-10.4); CHLORIDE, SERUM 103 MMOL/L (96-112); CHOL/HDL RATIO(NOT ORDER) 3.2 (0-5); CHOLESTEROL 133 MG/DL (< 200); CO2 (CARBON DIOXIDE) 29 MMOL/L (24-34); CREATININE 0.77 MG/DL (0.55-1.02); GFR AFRICAN AMERICAN 86 ML/MIN (>=60); GFR NON AFRICAN AMERICAN 74 ML/MIN (>=60); GLUCOSE, SERUM 236 MG/DL (60-99); HDL CHOLESTEROL 42 MG/DL (> 49); LDL CHOLESTEROL 78 MG/DL (< 130); NON-HDL CHOLESTEROL 91 MG/DL (< 160); TRIGLYCERIDE 67 MG/DL (< 150)
[2016-12-17 05:28] LABS: SODIUM, SERUM 140 MMOL/L (135-148)
[2016-12-17 05:35] LABS: MANUAL DIFF NO %
[2016-12-18 05:24] LABS: BASOPHILS 0 %; HEMATOCRIT 35.7 % (36.0-48.0); HEMOGLOBIN 12.4 g/dL (12.0-16.0); IMMATURE GRANULOCYTES 0.1 %; IMMATURE GRANULOCYTES ABSOLUTE 0.01 10/3/uL (0.0-0.11); LYMPHOCYTES 19.8 %; LYMPHOCYTES ABSOLUTE 1.48 10/3/uL (0.67-4.30); MEAN CORPUS HGB CONC 34.7 g/dL (32.0-36.0); MEAN CORPUSCULAR VOLUME 86.2 fL (80-100); MEAN PLATELET VOLUME 10.9 fL (9.2-13.0); MONOCYTES 12.2 %; MONOCYTES ABSOLUTE 0.91 10/3/uL (0.21-1.20); NEUTROPHILS 63.9 %; NEUTROPHILS ABSOLUTE 4.78 10/3/uL (2.02-8.40); PLATELET COUNT 221 10/3/uL (150-400); RED CELL COUNT 4.14 10/6/uL (4.0-5.6); WHITE BLOOD CELLS 7.5 10/3/uL (4.5-10.5)
[2016-12-18 05:27] LABS: MANUAL DIFF NO %
[2016-12-18 07:08] LABS: BUN (BLOOD UREA NITROGEN) 11 MG/DL (6-23); CALCIUM, SERUM 8.6 MG/DL (8.5-10.4); CHLORIDE, SERUM 102 MMOL/L (96-112); CO2 (CARBON DIOXIDE) 30 MMOL/L (24-34); CREATININE 0.65 MG/DL (0.55-1.02); GFR AFRICAN AMERICAN 99 ML/MIN (>=60); GFR NON AFRICAN AMERICAN 85 ML/MIN (>=60); GLUCOSE, SERUM 216 MG/DL (60-99); POTASSIUM, SERUM 4.1 MMOL/L (3.5-5.3); SODIUM, SERUM 138 MMOL/L (135-148)
[2017-05-03] MEDS ORDERED: ZIAC5 PO (22:36)
[2017-05-03] MEDS ORDERED: PLAVIX PO (22:37)
[2017-05-03] MEDS ORDERED: LIPITOR80 MG PO (22:38)
[2017-05-03] MEDS ORDERED: HUMAPUMP SC (22:39)
[2017-05-05] MEDS ORDERED: B VITAMIN PO (17:53)
[2017-05-05] MEDS ORDERED: VITAMIN D PO (17:54)
[2017-05-05] MEDS ORDERED: [UNRECOGNIZED DRUG - OTHER] PO (17:54)
[2017-05-05] MEDS ORDERED: ALPHA LIPOIC PO (17:54)
[2017-05-05] MEDS ORDERED: BACOPA PO (17:55)
[2017-05-05] MEDS ORDERED: HALF81 PO (17:55)
[2017-05-05] MEDS ORDERED: LIPITOR80 MG PO (17:56)
[2017-05-05] MEDS ORDERED: HUMAPUMP SC (17:57)
[2017-05-05] MEDS ORDERED: RISP0.5 PO (17:57)
[2017-05-05] MEDS ORDERED: ZIAC5 PO (17:57)
[2017-05-05] MEDS ORDERED: SYN125 PO (17:57)
[2017-05-05] MEDS ORDERED: PLAVIX PO (17:58)
== END 2016-12-19 17:02 | DRG 41 ==
LOC: ER 22:28 → 6NO 23:59
PROVIDERS: Emergency Medicine; Hospitalist; Internal Medicine; Nurse Practitioner
PROC: 0JH632Z Insertion of Monitoring Device into Chest Subcutaneous Tissue and Fascia, Percutaneous Approach (ICD-10-PCS; principal; 2016-12-17)
DX: I63.8 Other cerebral infarction (principal); N39.0 Urinary tract infection, site not specified; F03.90 Unspecified dementia, unspecified severity, without behavioral disturbance, psychotic disturbance, mood disturbance, and anxiety; I45.10 Unspecified right bundle-branch block; I10 Essential (primary) hypertension; E66.9 Obesity, unspecified; F32.9 Major depressive disorder, single episode, unspecified; R26.81 Unsteadiness on feet; R42 Dizziness and giddiness; I44.0 Atrioventricular block, first degree; E03.9 Hypothyroidism, unspecified; Z96.41 Presence of insulin pump (external) (internal); Z87.440 Personal history of urinary (tract) infections; Z81.8 Family history of other mental and behavioral disorders; Z82.3 Family history of stroke; Z90.710 Acquired absence of both cervix and uterus; Z79.4 Long term (current) use of insulin; Z68.32 Body mass index [BMI] 32.0-32.9, adult
CPT/HCPCS: 33282; 70450; 70544; 70548; 70551-52; 71010; 80048; 80053; 80061; 80076; 81001; 81003; 82140; 82533; 82607; 82746; 82962; 83036; 83735; 84439; 84443; 84481; 84484; 85025; 85610; 85730; 87086; 93005; 93880; 96374; 97110-GP; 97116-GP; 97162-GP; 97166-GO; 97535-GO; 99285; A9270-GY; A9577; C1764; C8929; J0360; J0690; J2405; J3411; Q9957

== ENCOUNTER 2016-12-20 22:10 | Emergency (ER) | payer OTHER ==
[~2016-12-20 22:10] MED LIST changes: +ARICEPT5 PO; +CEFT2 PO
[2016-12-20 23:07] LABS: BASOPHILS 0 %; EOSINOPHILS 4.2 %; EOSINOPHILS ABSOLUTE 0.31 10/3/uL (0.0-0.53); HEMATOCRIT 37.5 % (36.0-48.0); HEMOGLOBIN 13.1 g/dL (12.0-16.0); IMMATURE GRANULOCYTES 0.3 %; IMMATURE GRANULOCYTES ABSOLUTE 0.02 10/3/uL (0.0-0.11); LYMPHOCYTES 22.4 %; LYMPHOCYTES ABSOLUTE 1.65 10/3/uL (0.67-4.30); MANUAL DIFF NO %; MEAN CORPUS HGB CONC 34.9 g/dL (32.0-36.0); MEAN CORPUSCULAR HEMOGLOB 30.1 pg (26.0-34.0); MEAN CORPUSCULAR VOLUME 86.2 fL (80-100); MEAN PLATELET VOLUME 10.7 fL (9.2-13.0); MONOCYTES 9.3 %; MONOCYTES ABSOLUTE 0.68 10/3/uL (0.21-1.20); NEUTROPHILS 63.8 %; NEUTROPHILS ABSOLUTE 4.69 10/3/uL (2.02-8.40); PLATELET COUNT 231 10/3/uL (150-400); RBC DISTRIBUTION WIDTH 12.9 % (12.0-16.0); RED CELL COUNT 4.35 10/6/uL (4.0-5.6); WHITE BLOOD CELLS 7.4 10/3/uL (4.5-10.5)
[2016-12-20 23:13] LABS: PARTIAL THROMBO TIME 30.2 SEC (22.5-37.2); PROTIME (NOT ORD) 13.4 SEC (12.0-14.5)
[2016-12-20 23:26] LABS: CALCIUM, SERUM 8.3 MG/DL (8.5-10.4); CHEST PAIN PROFILE TAT 0 Hrs 25 Mins; CHLORIDE, SERUM 97 MMOL/L (96-112); CO2 (CARBON DIOXIDE) 32 MMOL/L (24-34); CREATININE 0.75 MG/DL (0.55-1.02); GFR AFRICAN AMERICAN 88 ML/MIN (>=60); GFR NON AFRICAN AMERICAN 76 ML/MIN (>=60); GLUCOSE, SERUM 258 MG/DL (60-99); POTASSIUM, SERUM 3.5 MMOL/L (3.5-5.3); SODIUM, SERUM 132 MMOL/L (135-148); TROPONIN I <0.02 NG/ML (<0.05)
[2016-12-20 23:28] LABS: BUN (BLOOD UREA NITROGEN) 17 MG/DL (6-23)
[2017-05-03] MEDS ORDERED: ZIAC5 PO (22:36)
[2017-05-03] MEDS ORDERED: PLAVIX PO (22:37)
[2017-05-03] MEDS ORDERED: LIPITOR80 MG PO (22:38)
[2017-05-03] MEDS ORDERED: HUMAPUMP SC (22:39)
[2017-05-05] MEDS ORDERED: B VITAMIN PO (17:53)
[2017-05-05] MEDS ORDERED: ALPHA LIPOIC PO (17:54)
[2017-05-05] MEDS ORDERED: VITAMIN D PO (17:54)
[2017-05-05] MEDS ORDERED: [UNRECOGNIZED DRUG - OTHER] PO (17:54)
[2017-05-05] MEDS ORDERED: BACOPA PO (17:55)
[2017-05-05] MEDS ORDERED: HALF81 PO (17:55)
[2017-05-05] MEDS ORDERED: LIPITOR80 MG PO (17:56)
[2017-05-05] MEDS ORDERED: RISP0.5 PO (17:57)
[2017-05-05] MEDS ORDERED: HUMAPUMP SC (17:57)
[2017-05-05] MEDS ORDERED: ZIAC5 PO (17:57)
[2017-05-05] MEDS ORDERED: SYN125 PO (17:57)
[2017-05-05] MEDS ORDERED: PLAVIX PO (17:58)
== END 2016-12-21 01:44 | disposition home or self-care (01) ==
LOC: ER 22:10
PROVIDERS: Emergency Medicine
DX: I63.9 Cerebral infarction, unspecified (principal); I10 Essential (primary) hypertension; F03.90 Unspecified dementia, unspecified severity, without behavioral disturbance, psychotic disturbance, mood disturbance, and anxiety; F32.9 Major depressive disorder, single episode, unspecified; E11.9 Type 2 diabetes mellitus without complications; Z90.710 Acquired absence of both cervix and uterus; Z88.8 Allergy status to other drugs, medicaments and biological substances; Z79.899 Other long term (current) drug therapy
CPT/HCPCS: 70544; 70551-52; 71010; 80048; 83735; 84484; 85025; 85610; 85730; 87040; 99284; A9270-GY